=== PATIENT | female | born 1970 | race Caucasian/White ===

== ENCOUNTER 2022-02-12 13:22 | Emergency (ER) | payer BC, SELFPAY ==
--- NOTE | ~2022-02-12 | CT_ITS ---
EXAMINATION: CT HEAD WITHOUT CONTRAST CLINICAL INFORMATION: Transient memory loss COMPARISON: None. TECHNIQUE: Contiguous axial imaging was performed from the skull base to vertex without intravenous contrast. This CT examination was performed using dose optimization techniques as appropriate, variously including the following: * Automated exposure control * Adjustment of mA and/or kV according to patient size (this includes techniques or standardized protocols for targeted exams where dose is matched to indication/reason for exam; i.e. extremities or head) Use of iterative reconstruction technique DLP: 707 mGy-cm. FINDINGS: There is no evidence of acute intracranial hemorrhage or territorial infarction. No abnormal mass effect or midline shift is seen. Suggs to white matter differentiation is well preserved. No extra-axial fluid collections are identified. No hydrocephalus. No significant volume loss. Patchy periventricular and deep white matter hypoattenuation is consistent with mild small vessel ischemic changes. The osseous structures and soft tissues are normal. The mastoid air cells and visualized portions of the paranasal sinuses are well aerated. CT/CT head for stroke IMPRESSION: No acute intracranial pathology. This critical result was discussed with Luis Chowdhury MD by telephone at 02/12/2022 1:39 PM and it was ascertained that the content and urgency of the report was understood at the time of direct communication.
--- NOTE | 2022-02-12 13:30 | ECG_ITS ---
Test Reason : AMS Blood Pressure : / mmHG Vent. Rate : 077 BPM Atrial Rate : 077 BPM P-R Int : 176 ms QRS Dur : 092 ms QT Int : 380 ms P-R-T Axes : 039 044 024 degrees QTc Int : 430 ms Normal sinus rhythm Normal ECG No previous ECGs available Referred By: Luis Chowdhury Electronically Signed By:BINTA SHARMA
[2022-02-12 13:36] VITALS: BP 180/90; PULSE 80; O2SAT 98
[2022-02-12 13:38] VITALS: BP 146/72; PULSE 81; RESP 18; TEMP 36.5; O2SAT 98; BMI 25.3
[2022-02-12 13:44] LABS: Glucose, Whole Blood 113 mg/dL (60-115)
--- NOTE | 2022-02-12 13:54 | ED.NEUROSD ---
HPI - Neuro Symptoms/Deficit General Chief Complaint: Stroke Stated Complaint: AMS, CONFUSION Time Seen by Provider: 02/12/22 13:29 Source: patient, EMS and other (Partner) Limitations: no limitations History of Present Illness HPI Narrative: This is a 51-year-old female who had been at work, had eaten lunch and the next thing she knew EMS was there helping her get on to a gurney. The patient does not recall the events prior to that between the time of eating lunch and the time when EMS had arrived. Patient was initially reported to have abnormal mental status. On arrival the patient explains that she does not remember what happened but otherwise aside from feeling little foggy, feels well. She has a slight headache. She denies any visual change, trouble swallowing, dizziness, chest pain, shortness of breath, abdominal pain, palpitations, focal weakness or numbness in her arms or legs or face. She is on Synthroid. She is not a smoker, has no history of hypertension or diabetes. Patient denies any vomiting or diarrhea or unusual exertion where she sweats a lot. The patient's partner later gave history that the patient had reportedly been found on the ground having lost consciousness and EMS was called. Related Data Allergies Allergy/AdvReac Type Severity Reaction Status Date / Time No Known Allergies Allergy Verified 02/12/22 13:30 Review of Systems Constitutional: Constitutional: Denies chills and Denies fever(s) Eyes: Eyes: Reports no additional eye complaints ENT: Reports system reviewed and no additional complaints, except as documented and Reports Normal hearing present Cardiovascular: Cardiovascular: Reports no additional cardiovascular complaints Respiratory: Respiratory: Reports no additional respiratory complaints Gastrointestinal: Gastrointestinal: Reports no additional gastrointestinal complaints, Denies diarrhea, Denies nausea and Denies vomiting Musculoskeletal: Musculoskeletal: Reports no additional musculoskeletal complaints Neurologic: Reports system reviewed and no additional complaints, except as documented, Reports Normal hearing present and Denies Abnormal speech present COUNT INCLUDES THE [facility] Social History Social History Alcohol intake: current Alcohol intake frequency: a few times a week Patient Tobacco Use Status: Never used Tobacco Use of substances other than those prescribed or required for medical reasons: No Advance Directives: No Advance Directives Information Provided: No Physical Exam Vital Signs: Vital Signs: Last Vital Signs Temp 97.7 F 02/12/22 13:38 Pulse 77 02/12/22 14:08 Resp 13 02/12/22 14:08 BP 148/96 H 02/12/22 14:08 Pulse Ox 98 02/12/22 14:08 BMI result Body Mass Index 25.3 Const: Other: Well appearing, answers questions appropriately General: cooperative Orientation/consciousness: patient oriented x3 Limitations: no limitations HEENT: Head: Yes normal to inspection General nose exam: Normal external nose present Mouth: Normal oral and palatal mucosa present Eyes: General: appearance normal, both eyes and all related structures Pupils: Equal, round and reactive pupils present Resp: Effort & Inspection: normal respiratory effort Auscultation: clear to auscultation bilaterally Cardio: Rate: regular rate Rhythm: regular rhythm Heart sounds: S1 normal heart sound present, S2 normal heart sound present, no gallops, no murmurs and no rubs GI: Palpation (GI): Soft to palpation and nontender Skin: Other: Warm and dry Neuro: General: patient oriented x3, tone normal, moves all extremities, no focal motor deficits and CN's II-XI intact bilaterally Cranial nerves: Yes CN's II-XII intact bilaterally, Yes Equal, round and reactive pupils present, Yes Bilaterally intact EOM present, Yes Nystagmus not present, Yes Normal facial strength present, Yes Midline tongue present, Yes Normal hearing present and Yes Ability to bilaterally elevate shoulders present Cognition (Neuro): normal cognition Speech: No Abnormal speech present Motor exam (neuro): 5/5 motor strength present throughout, Pronator motor function not present and no tremor noted Coordination: [id number] test normal, [id number]-[id number] test normal, Normal rapid alternating movements of the distal upper extremity present (Neuro) and Normal rapid alternating movements of the distal lower extremity present (Neuro) Extrem: Other: No edema Psych: Appearance: well kempt Mental Status: mental status grossly normal Speech and movement: Normal speech and movement present Affect: normal affect MDM - Neuro Symptoms/Deficit MDM Narrative Medical decision making narrative: Patient later recalled that she does have history of migraine headaches, and she did prior to the onset of loss of consciousness note that she had a [id number] headache, also sauce squiggly lines in her vision, which she has previously had, did take 2 Advil, apparently subsequently had the loss of consciousness. She states her headache is nearly gone now. She does sometimes take Excedrin migraine for headache but has not taken Imitrex or other specific migraine therapy. Patient appears to have had syncope, likely vasovagal syncope, perhaps related to acute headache and/or nausea, though the patient states she does not typically have nausea associated with her migraine headache. Patient has no cardiac history. EKG is normal. Given that there was a headache precipitating the loss of consciousness, this likely was a vasovagal episode, doubt tachyarrhythmia, seizure. There is no reported seizure activity, patient not appear postictal initially. The labs are unremarkable, no evidence of anemia Lab Data Attestation: I reviewed the patient's lab results. Result diagrams: 02/12/22 13:57 02/12/22 13:57 Labs: Lab Results 02/12/22 02/12/22 02/12/22 Range/Units 13:40 13:57 13:57 WBC 8.6 (4.8-10.8) X10*3/uL RBC 4.71 (4.20-5.50) X10*6/uL Hgb 13.2 (12.0-16.0) g/dl Hct 40.3 (37.0-47.0) % MCV 85.6 (80.0-98.0) fL MCH 28.0 (27.0-33.0) pg MCHC 32.8 (31.0-35.0) g/dl RDW 12.7 (11.0-16.0) % Plt Count 202 (160-400) X10*3/uL MPV 11.1 (9.4-12.3) fL Immature Gran % (Auto) 0.2 (0.0-0.4) % Neut % (Auto) 81.3 H (45-73) % Lymph % (Auto) 13.3 L (20-40) % Pike % (Auto) 4.3 (2-11) % Eos % (Auto) 0.6 (0-4) % Baso % (Auto) 0.3 (0-2) % Lymph # (Auto) 1.1 L (1.2-4.9) X10*3/uL Pike # (Auto) 0.4 (0.1-1.2) X10*3/uL Eos # (Auto) 0.1 (0.0-0.4) X10*3/uL Baso # (Auto) 0.0 (0.0-0.2) X10*3/uL Abs Immat Gran (auto) 0.02 (0.00-0.03) X10*3/uL Absolute Neuts (auto) 7.0 (2.0-8.3) x10*3/uL Absolute Nucleated RBC 0.000 (0.0-0.012) X10*3/uL Nucleated RBC % (auto) 0.0 (0.0-0.2) /100WBC PT 12.1 (9.9-13.0) SEC INR 1.1 (0.9-1.1) APTT 27.2 (24.1-38.0) SEC Sodium (135-145) mmol/L Potassium (3.3-5.1) mmol/L Chloride (96-108) mmol/L Carbon Dioxide (22-29) mmol/L Anion Gap (12-20) BUN (9-16) mg/dL Creatinine (0.5-1.4) mg/dL Estim Creat Clear Calc Estimated GFR POC Glucose 113 (60-115) mg/dL Random Glucose (60-115) mg/dL Calcium (8.4-10.2) mg/dL Total Creatine Kinase (26-140) U/L Troponin I High Sens (<3.5-17.0) ng/L 02/12/22 02/12/22 Range/Units 13:57 13:57 WBC (4.8-10.8) X10*3/uL RBC (4.20-5.50) X10*6/uL Hgb (12.0-16.0) g/dl Hct (37.0-47.0) % MCV (80.0-98.0) fL MCH (27.0-33.0) pg MCHC (31.0-35.0) g/dl RDW (11.0-16.0) % Plt Count (160-400) X10*3/uL MPV (9.4-12.3) fL Immature Gran % (Auto) (0.0-0.4) % Neut % (Auto) (45-73) % Lymph % (Auto) (20-40) % Pike % (Auto) (2-11) % Eos % (Auto) (0-4) % Baso % (Auto) (0-2) % Lymph # (Auto) (1.2-4.9) X10*3/uL Pike # (Auto) (0.1-1.2) X10*3/uL Eos # (Auto) (0.0-0.4) X10*3/uL Baso # (Auto) (0.0-0.2) X10*3/uL Abs Immat Gran (auto) (0.00-0.03) X10*3/uL Absolute Neuts (auto) (2.0-8.3) x10*3/uL Absolute Nucleated RBC (0.0-0.012) X10*3/uL Nucleated RBC % (auto) (0.0-0.2) /100WBC PT (9.9-13.0) SEC INR (0.9-1.1) APTT (24.1-38.0) SEC Sodium 143 (135-145) mmol/L Potassium 4.0 (3.3-5.1) mmol/L Chloride 111 H (96-108) mmol/L Carbon Dioxide 26 (22-29) mmol/L Anion Gap 10 L (12-20) BUN 11 (9-16) mg/dL Creatinine 0.89 (0.5-1.4) mg/dL Estim Creat Clear Calc 73.7 Estimated GFR > 60 POC Glucose (60-115) mg/dL Random Glucose 112 (60-115) mg/dL Calcium 9.4 (8.4-10.2) mg/dL Total Creatine Kinase 81 (26-140) U/L Troponin I High Sens < 3.5 (<3.5-17.0) ng/L Imaging Data CT scan - head: Radiologist's impression: No acute pathology ECG Data Attestation: I personally reviewed and interpreted this ECG as follows: ECG interpretation date: 02/12/22 ECG interpretation time: 14:02 Interpretation: Sinus rhythm with a rate of 77. No ST elevation depression. Normal QRS axis. Discharge Plan Discharge Clinical Impression: Migraine headache with aura, Syncope Patient Disposition: Home, Self-Care Instructions: Migraine Headache (ED), Syncope (ED) Additional Instructions: Follow-up with primary care physician. Use ibuprofen for pain as needed. Return for any new or worsened symptoms. If you have a recurrent episode of fainting, you may need to wear an event monitor to evaluate for any evidence of an abnormal heart rhythm, though it appears that you for submitting was a migraine headache and so you likely had was known as vasovagal syncope, whereyour blood pressure heart rate drop, causing you to feint Interventions: ED Discharge Assessment Last Done: 02/12/22 15:26 Discharge Date/Time: 02/12/22 15:30
[2022-02-12 14:01] LABS: MANUAL DIFF FLAG NO
[2022-02-12 14:05] LABS: Basophils Percent Auto 0.3 % (0-2); Eosinophils Absolute Auto 0.1 X10*3/uL (0.0-0.4); Eosinophils Percent Auto 0.6 % (0-4); Hematocrit 40.3 % (37.0-47.0); Hemoglobin 13.2 g/dl (12.0-16.0); Imm Gran Abs Auto 0.02 X10*3/uL (0.00-0.03); Imm Gran Pct Auto 0.2 % (0.0-0.4); Lymphocytes Absolute Auto 1.1 X10*3/uL (1.2-4.9); Lymphocytes Percent Auto 13.3 % (20-40); Mean Corpuscular HGB Conc 32.8 g/dl (31.0-35.0); Mean Corpuscular Volume 85.6 fL (80.0-98.0); Mean Platelet Volume 11.1 fL (9.4-12.3); Monocytes Absolute Auto 0.4 X10*3/uL (0.1-1.2); Monocytes Percent Auto 4.3 % (2-11); Neutrophils Percent Auto 81.3 % (45-73); Platelet Count 202 X10*3/uL (160-400); Red Blood Count 4.71 X10*6/uL (4.20-5.50); Red Cell Distribution Width 12.7 % (11.0-16.0); White Blood Count 8.6 X10*3/uL (4.8-10.8)
[2022-02-12 14:08] VITALS: BP 148/96; PULSE 77; RESP 13; O2SAT 98
[2022-02-12 14:10] LABS: INTERNATIONAL NORM RATIO 1.1 (0.9-1.1); Prothrombin Time 12.1 SEC (9.9-13.0)
[2022-02-12 14:13] LABS: Partial Thromboplastin Time 27.2 SEC (24.1-38.0)
--- NOTE | 2022-02-12 14:22 | PC.NURSE ---
Pt alert/oriented, Speech is clear, reports generally an unwell feeling and head pressure. PERRLA, smile symmetrical. at bedside. Awaits dispo and CT results.
[2022-02-12 14:23] LABS: Anion Gap 10 (12-20); Blood Urea Nitrogen 11 mg/dL (9-16); Calcium 9.4 mg/dL (8.4-10.2); Carbon Dioxide 26 mmol/L (22-29); Chloride 111 mmol/L (96-108); Creatinine Clr Calc Pharmacy 73.7; Estimated Glomerular Filt Rate > 60; Glucose Random 112 mg/dL (60-115); Sodium 143 mmol/L (135-145)
[2022-02-12 14:26] LABS: Troponin-I High Sensitivity < 3.5 ng/L (<3.5-17.0)
[2022-02-12 14:33] LABS: Stroke Lab Use COMPLETE
== END 2022-02-12 15:30 | disposition home or self-care (01) ==
PROVIDERS: Emergency Provider Emergency Medicine
DX: G43.109 Migraine with aura, not intractable, without status migrainosus (principal); R55 Syncope and collapse; R41.82 Altered mental status, unspecified; G45.4 Transient global amnesia; Z79.899 Other long term (current) drug therapy
CPT/HCPCS: 36415; 70450; 80048; 82550; 82947; 84484; 85025; 85610; 85730; 93005; 99284